=== PATIENT | male | born 1970 | race Caucasian/White ===

== ENCOUNTER → 2021-02-04 10:42 | Outpatient (CLI) | payer BC | END | disposition home or self-care (01) | LOC: D.HCCECHO 10:30 | PROVIDERS: ATTEND Internal Medicine Cardiovascular Disease | DX: I10 Essential (primary) hypertension (principal) ==

== ENCOUNTER → 2021-02-05 13:48 | Outpatient (CLI) | payer BC | END | disposition home or self-care (01) | LOC: D.HCCARDIO 13:48 | PROVIDERS: ATTEND Internal Medicine Cardiovascular Disease | DX: I20.9 Angina pectoris, unspecified (principal) ==

== ENCOUNTER 2021-02-11 07:28 | Day surgery (SDC) | payer BC ==
[~2021-02-11] VITALS: Ht 182.9 cm; Wt 123.6 kg
--- NOTE | ~2021-02-11 | HEMODYNAMI ---
PATIENT:MAYRA GRACE MEDICAL RECORD: [id number] : 74 LOCATION:[facility] ADMISSION DATE: 02/11/21 Generatedon:19:40 Patient name: MAYRA GRACE Patient #: [id number] : 1970 Date of study: 02/11/2021 Page: Of Hemodynamic Procedure Report Patient Data Patient Demographics Procedure consent was obtained First Name: MAYRA Gender: Male Last Name: SANJAY : 1970 Patient #: [id number] Age: 50 year(s) Race: Unknown SSN: [id number] Additional ID: [id number] Contact details [address]: [address] [place] [address] State: [place] City: [place] Zip code: [address] Admission Admission Data Admission Date: 02/11/2021 Admission Time: 7:28 Weight (lbs.): 270 Weight (kg.): 122.47 Procedure Procedure Types Cath Procedure Diagnostic Procedure [facility] w/Coronaries Sedation Charges Moderate Sedation 25-39 minutes Procedure Description Procedure Date Procedure Date: 02/11/2021 Procedure Start Time: 9:18 Procedure End Time: 9:38 Procedure Staff Name Function Bernard Mcqueen MD Performing Physician Lisa Walker RT Monitor Xu George RN Nurse Alexandru Lucia RN Nurse Nidhi Grande RT Scrub Michelle De La Torre RT Monitor Procedure Data Cath Procedure Fluoroscopy Diagnostic fluoroscopy Total fluoroscopy Time: 3.9 time: 3.9 min min Diagnostic fluoroscopy Total fluoroscopy dose: 814 dose: 814 mGy mGy Contrast Material Contrast Material Type Amount (ml) Isovue 300 61 Entry Location Entry Primary Successful Side Size Upsize Upsize Entry Closure [place] ccessful Closure Location (Fr) 1 (Fr) 2 (Fr) Remarks Device Remarks Radial Right 5 Fr Mechanical artery Compression Estimated blood loss: 5 ml Diagnostic catheters Device Type Used For End Catheter Placement DIAGNOSTIC Hensley 110cm 5 Multi-vessel Fr catheter ([id number]) Angiography DIAGNOSTIC JL 3.5 5Fr Left Coronary catheter ([id number]) Angiography DIAGNOSTIC Ger 110cm Left Coronary 5Fr catheter ([id number]) Angiography Procedure Complications No complications Procedure Medications Medication Administration Route Dosage Oxygen etCO2 Nasal cannula 2 l/min Lidocaine 2% added to field 20 Heparin Flush Bag added to field 2 bags (1000units/500ml NS) 0.9% NaCl I.V. 100 ml/hr Radial Cocktail added to field 1 syringe (Verapamil 2mg/Nitro 400mcg/Heparin 1500units) Fentanyl I.V. 50 mcg Versed I.V. 1 mg Versed I.V. 1 mg Fentanyl I.V. 50 mcg Fentanyl I.V. 50 mcg Versed I.V. 1 mg Fentanyl I.V. 50 mcg Versed I.V. 1 mg Versed I.V. 1 mg Fentanyl I.V. 75 mcg Versed I.V. 1 mg Fentanyl I.V. 25 mcg Hemodynamics Rest Heart Rate: 75 (bpm) Pressure Samples Time Site Value (mmHg) Purpose Heart Use Rate(bpm) 9:20 LV 158/0,20 Snapshot 78 Gradients Valve Time Site Site Mean SEP/DFP Peak To Heart Use 1 2 (mmHg) (sec/min) Peak Rate (mmHg) (bpm) Aortic 9:21 LV AO 76 Snapshots Pre Cath Intra NCS Post Cath Vital Signs Time Heart Resp SPO2 etCO2 NIBP (mmHg) Rhythm Pain Sedation Rate (ipm) (%) (mmHg) Status Level (bpm) 9:00:33 70 14 96 17.1 128/94(123) NSR 0 (11) 10(A) , No pain 9:04:55 67 17 90 29 140/86(113) NSR 0 (11) 10(A) , No pain 9:09:19 63 15 95 30.5 127/88(105) NSR 0 (11) 10(A) , No pain 9:13:41 74 18 94 24.5 137/88(107) NSR 0 (11) 10(A) , No pain 9:18:06 67 13 93 36.4 127/86(106) NSR 0 (11) 9(A) , No pain 9:22:24 74 13 92 23.8 126/72(99) NSR 0 (11) 9(A) , No pain 9:26:46 71 10 93 37.9 121/79(99) NSR 0 (11) 9(A) , No pain 9:31:00 75 13 93 30.5 133/97(107) NSR 0 (11) 10(A) , No pain 9:35:26 68 36 45.4 141/83(119) NSR 0 (11) 10(A) , No pain Medications Time Medication Route Dose Verified Delivered Reason Notes Effectiveness by by 8:59:20 Oxygen etCO2 2 l/min Bernard Alexandru used for Nasal Richar Lucia RN procedure cannula 8:59:34 Lidocaine 2% added 20ml Bernard Bernard for local to vial Richar Mcqueen MD anesthetic field 8:59:43 Heparin Flush added 2 bags Bernard Bernard used for Bag to Richar Mcqueen MD procedure (1000units/500ml field NS) 8:59:54 0.9% NaCl I.V. 100 Bernard Alexandru Per ml/hr Richar Lucia RN physician 9:00:11 Radial Cocktail added 1 Bernard Bernard for (Verapamil to syringe Richar Mcqueen MD vasodilation 2mg/Nitro field 400mcg/Heparin 1500units) 9:06:28 Fentanyl I.V. 50 mcg Bernard Alexandru for sedation Richar Lucia RN 9:06:41 Versed I.V. 1 mg Bernard Alexandru for sedation Richar Lucia RN 9:09:17 Versed I.V. 1 mg Bernard Alexandru for sedation Richar Lucia RN 9:09:23 Fentanyl I.V. 50 mcg Bernard Alexandru for sedation Richar Lucia RN 9:14:20 Fentanyl I.V. 50 mcg Bernard Alexandru for sedation Richar Lucia RN 9:14:23 Versed I.V. 1 mg Bernard Alexandru for sedation Richar Lucia RN 9:20:19 Fentanyl I.V. 50 mcg Bernard Alexandru for sedation Richar Lucia RN 9:20:23 Versed I.V. 1 mg Bernard Alexandru for sedation Richar Lucia RN 9:28:54 Versed I.V. 1 mg Bernard Alexandru for sedation Richar Lucia RN 9:30:32 Fentanyl I.V. 75 mcg Bernard Alexandru for sedation Richar Lucia RN 9:31:24 Versed I.V. 1 mg Bernard Aelxandru for sedation Richar Lucia RN 9:32:11 Fentanyl I.V. 25 mcg Bernard Horvath for sedation Richar Lucai RN Procedure Log Time Note 8:41:40 Patient Weight : 270 lbs 8:41:58 Diagnostic Cath Status : Elective 8:59:07 Vital chart was started 8:59:20 Oxygen 2 l/min etCO2 Nasal cannula was administered by Alexandru Lucia RN; used for procedure; Verbal order read back and verified. 8:59:34 Lidocaine 2% 20ml vial added to field was administered by Bernard Mcqueen MD; for local anesthetic; Verbal order read back and verified. 8:59:43 Heparin Flush Bag (1000units/500ml NS) 2 bags added to field was administered by Bernard Mcqueen MD; used for procedure; Verbal order read back and verified. 8:59:54 0.9% NaCl 100 ml/hr I.V. was administered by Alexandru Lucia RN; Per physician; Verbal order read back and verified. 9:00:11 Radial Cocktail (Verapamil 2mg/Nitro 400mcg/Heparin 1500units) 1 syringe added to field was administered by Bernard Mcqueen MD; for vasodilation; Verbal order read back and verified. 9:00:25 Procedure Status Elective Heart Cath (OP). 9:00:27 Bernard Mcqueen MD sent for patient. Start room use. 9:00:29 Time tracking: Regular hours (M-F 7:00 - 5:00) 9:00:34 Plan of Care:Hemodynamics will remain stable., Cardiac rhythm will remain stable., Comfort level will be maintained., Respiratory function will remain adequate., Patient/ family verbilizes understanding of procedure., Procedure tolerated without complication., Recovers from procedure without complications.. 9:00:40 Patient received from Pre/Post Procedure Room to CCL 1 Alert and oriented. Tansferred to table in Supine position. 9:00:44 Signed procedure consent form obtained from patient. 9:00:46 Warm blankets applied, and aspen hugger turned on for patient comfort. 9:00:46 Correct patient and procedure confirmed by team. 9:00:47 ECG and BP/O2 sat monitors applied to patient. 9:00:48 Baseline sample Acquired. 9:00:53 Rhythm: sinus rhythm 9:00:54 Full Disclosure recording started 9:01:10 H&P Date Dictated: 01/30/2021 Within 30 days and on chart., H&P Addendum completed by physician on day of procedure. (MUST COMPLETE FOR ALL OUTPATIENTS). 9:01:11 Pre-procedure instructions explained to patient. 9:01:13 Family in waiting room. 9:01:15 Patient NPO since Midnight. 9:01:21 Is the patient allergic to Iodine/contrast media? No. 9:01:23 Was the patient premedicated? Yes 9:01:45 Snore? Yes 9:01:52 IV patent on arrival in left forearm with 0.9% NaCl at [facility]. 9:02:05 Use device set Radial Dx or PCI 9:02:08 ACIST Syringe (86643) opened to sterile field. 9:02:08 Medline Cath Pack ([id number]) opened to sterile field. 9:02:10 Bag Decanter (2002S) opened to sterile field. 9:02:10 ACIST Hand Control (71196) opened to sterile field. 9:02:11 ACIST Manifold (37250) opened to sterile field. 9:02:12 MBrace Wrist Support ([id number]) opened to sterile field. 9:02:13 NEEDLE Cook 21G 4cm Radial ([id number]) opened to sterile field. 9:02:14 EMERALD Guide Wire (502-104) opened to sterile field. 9:02:15 SHEATH 6FR RAIN (0554216) opened to sterile field. 9:03:22 Patient diabetic? No. 9:03:29 Sleep apnea? No 9:04:07 Stress Test: yes; abnormal inferior/lateral 9:04:11 Alarms reviewed by R. N. 9:04:11 Sharps counted by scrub and verified by R.N. 9:04:14 Physician paged 9:04:16 Physician arrived 9:05:41 --------ALL STOP TIME OUT------ 9:05:42 Final Timeout: patient, procedure, and site verified with staff and physician. All members of the team are in agreement. 9:05:44 Right Radial & Right Groin site verified by team. 9:05:47 Fire Safety Assessment: A--An alcohol-based skin anteseptic being used preoperatively., C--Open oxygen or nitrous oxide is being used., D--An ESU, laser, or fiber-optic light is being used. 9:05:50 Physical assessment completed. ASA score P 2 - A patient with mild systemic disease as per Bernard Mcqueen MD. 9:06:28 Fentanyl 50 mcg I.V. was administered by Alexandru Lucia RN; for sedation; Verbal order read back and verified. 9:06:41 Versed 1 mg I.V. was administered by Alexandru Lucia RN; for sedation; Verbal order read back and verified. 9:07:58 2) 60-89 Mildly reduced kidney function, and other findings (as for stage 1) point to kidney disease. 9:08:43 Maximum allowable contrast dose (3.7 X eGFR X 0.75)235 ml. 9:08:47 Sedation plan: IV Moderate Sedation Medication:Versed, Fentanyl 9:09:17 Versed 1 mg I.V. was administered by Alexandru Lucia RN; for sedation; Verbal order read back and verified. 9:09:23 Fentanyl 50 mcg I.V. was administered by Alexandru Lucia RN; for sedation; Verbal order read back and verified. 9:14:20 Fentanyl 50 mcg I.V. was administered by Alexandru Lucia RN; for sedation; Verbal order read back and verified. 9:14:23 Versed 1 mg I.V. was administered by Alexandru Lucia RN; for sedation; Verbal order read back and verified. 9:16:09 Procedure started. 9:18:34 Local anesthetic to right radial artery with Lidocaine 2% by Bernard Mcqueen MD.INITIAL ACCESS ONLY 9:18:42 A 5 Fr sheath was inserted into the Right Radial artery 9:19:02 A DIAGNOSTIC Hensley 110cm 5 Fr catheter (967884) was advanced over the wire and used for Multi-vessel Angiography. 9:20:19 Fentanyl 50 mcg I.V. was administered by Alexandru Lucia RN; for sedation; Verbal order read back and verified. 9:20:23 Versed 1 mg I.V. was administered by Alexandru Lucia RN; for sedation; Verbal order read back and verified. 9:20:47 LV hemodynamics recorded. 9:20:48 LV gram done using CAMPOS 9:20:50 Injector settings: Ml/sec: 5, Volume: 15, 9:20:58 EF : 60 % 9:22:04 LCA angiography performed. 9:22:08 Injector settings: Ml/sec: 3, Volume: 6, 9:23:09 RCA angiography performed. 9:23:11 Injector settings: Ml/sec: 3, Volume: 6, 9:23:29 Catheter removed. 9:25:19 A DIAGNOSTIC JL 3.5 5Fr catheter ([id number]) was advanced over the wire and used for Left Coronary Angiography. 9:27:28 Catheter removed. unable to cannulate vessel. 9:28:31 A DIAGNOSTIC Ger 110cm 5Fr catheter (207374) was advanced over the wire and used for Left Coronary Angiography. 9:28:54 Versed 1 mg I.V. was administered by Alexandru Lucia RN; for sedation; Verbal order read back and verified. 9:30:32 Fentanyl 75 mcg I.V. was administered by Alexandru Lucia RN; for sedation; Verbal order read back and verified. 9:30:41 LCA angiography performed. 9:30:44 Injector settings: Ml/sec: 3, Volume: 6, 9:31:24 Versed 1 mg I.V. was administered by Alexandru Lucia RN; for sedation; Verbal order read back and verified. 9:32:11 Fentanyl 25 mcg I.V. was administered by Alexandru Lucia RN; for sedation; Verbal order read back and verified. 9:32:33 Catheter removed. 9:33:10 ZEPHYR LARGE TR BAND (023693) opened to sterile field. 9:33:48 Sheath removed intact; hemostasis achieved with Mechanical Compression to the Right Radial artery. 9:34:10 Procedure ended.(Physican Out) 9:35:27 Fluoroscopy time 03.90 minutes. 9:35:47 Fluoroscopy dose: 814 mGy 9:35:47 Flurop Dose total: 814 9:35:57 Dose Area Product 06268 mGy/cm. 9:36:04 Contrast amount:Isovue 300 61ml. 9:36:06 Maximum allowable dose exceeded? No. 9:36:07 Sharps counted by scrub and verified by R.N. 9:36:10 [place] band inflated with 9cc of air. 9:36:16 Insertion/operative site no bleeding no hematoma. 9:36:32 Post right radial artery:stable 9:36:35 Post Procedure Pulses reassessed and unchanged 9:36:43 Post procedure rhythm: unchanged. 9:36:45 Estimated blood loss: 5 ml 9:36:47 Post procedure instruction explained to patient.Patient verbalizes understanding. 9:36:48 Patient needs reinforcement of post procedure teaching. 9:37:45 Procedure type changed to Cath procedure, Diagnostic procedure, LHC, C w/Coronaries, Sedation Charges, Moderate Sedation 25-39 minutes 9:37:46 Procedure and supply charges have been captured, reviewed, submitted and are correct. 9:37:50 Procedure Complication : No complications 9:37:52 Vital chart was stopped 9:37:54 [facility] Findings: mild to moderate CAD (<70%) 9:37:56 Operative report dictated upon procedure completion. 9:37:56 See physician's report for complete and final results. 9:37:59 Report given to Pre/Post Procedure Room. 9:38:01 Patient transfered to Pre/Post Procedure Room with Stretcher. 9:38:03 Procedure ended. 9:38:03 Full Disclosure recording stopped 9:38:08 End room use (Document Last) 9:38:42 End room use (Document Last) 9:40:12 End room use (Document Last) Device Usage Item Name Manufacture Quantity Catalog Hospital Part Current Minima l Lot# / Number Charge Number Stock Stock Serial# Code ACIST Acist 1 09432 474843 307082 112201 20 Syringe Medical (21243) Systems Inc Medline Medline 1 [id number] 029924 52166 511564 5 Cath Pack ([id number]) Bag Microtek 1 063746 02255 360032 5 Decanter Medical Inc. () ACIST Hand Acist 1 89465 781365 634249 562762 5 Control Medical (36797) Systems Inc ACIST Acist 1 86247 325109 009793 118269 5 Manifold Medical (48195) Systems Inc MBrace Advanced 1 140-0250-00 649945 73862 359720 5 Wrist Vascular Support Dynamics ([id number]) NEEDLE Cook Cook Medical 1 U11038 689402 363968 006437 5 21G 4cm Radial (P87181) EMERALD Cardinal 1 502-455 592822 413048 355910 5 Guide Wire Health (792-694) SHEATH 6FR Cardinal 1 8848434 303800 6324987 257784 5 [facility] (5089915) DIAGNOSTIC Terumo 1 405013 233587 362938 979866 5 Hensley 110cm 5 Fr catheter (144001) DIAGNOSTIC Cardinal 1 [id number] 267060 324784 195726 5 JL 3.5 5Fr Health catheter (524678Y) DIAGNOSTIC Terumo 1 40-7133 401970 966769 808488 5 Ger 110cm 5Fr catheter (113305) ZEPHYR Cardinal 1 872262 267464 9472278 206751 5 LARGE TR Health BAND (719401) Signature Audit [place] Stage Time Signature Unsigned Intra-Procedure 02/11/2021 Lisa Walker 9:38:42 AM RT(R) Intra-Procedure 02/11/2021 Alexandru Lucia RN 9:40:12 AM Intra-Procedure 02/11/2021 Beranrd Mcqueen MD 9:40:32 AM [facility] [address] [place] [address]
[2021-02-11] MEDS ORDERED: LISINOPRIL20 MG PO (08:11)
[2021-02-11 08:22] VITALS: BP 153/92; Ht 182.9 cm; Wt 123.6 kg
[2021-02-11 08:50] LABS: BASOPHILS 0.8 % (0-2); HEMATOCRIT 46.1 % (42.0-54.0); HEMOGLOBIN 16.1 g/dL (13.5-17.5); IMMATURE GRANULOCYTES 0.3 % (0-5); LYMPHOCYTES 28.8 % (15-50); MCH 32.7 pg (26.0-34.0); MCHC 34.9 g/dL (31.0-37.0); MCV 93.7 fL (80.0-100.0); MEAN PLATELET VOLUME 9.6 fL (7.4-10.4); MONOCYTES 9.8 % (2-11); NEUTROPHIL ABS# 3.43 10x3/uL (1.78-5.38); NEUTROPHILS 58.3 % (40-80); PLATELET COUNT 191 10x3/uL (130-400); RBC 4.92 10x6/uL (4.20-6.10); RDW 13.9 % (11.5-14.5); WBC 5.9 10x3/uL (4.8-10.8)
[2021-02-11 09:06] LABS: ALT (SGPT) 56 U/L (10-68); CALC OSMOLALITY 281 mosm/kg (275-300); CARBON DIOXIDE 23.4 mmol/L (21.0-32.0); CHLORIDE - SERUM 106 mmol/L (98-107); CHOL - HDL RATIO 2.7 ratio (2.3-4.9); CHOLESTEROL, TOTAL 164 mg/dL (0-200); GLUCOSE 106 mg/dL (74-106); HDL CHOLESTEROL 62 mg/dL (32-96); LDL CHOLESTEROL 84 mg/dL (0-100); LDL-HDL RATIO 1.4 ratio (1.5-3.5); POTASSIUM - SERUM 3.7 mmol/L (3.5-5.1); SODIUM 140 mmol/L (136-145); TRIGLYCERIDE 91 mg/dL (30-200); UREA NITROGEN 21 mg/dL (7-18); eGFR NON AFRICAN AMERICAN 85 mL/min (90-120)
--- NOTE | 2021-02-11 09:45 | NUR ---
PT REC'D TO CATH RECOVERY ROOM 8 VIA [employer]. MONITORS ESTAB. AT BS. 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 ALARMS ON AND C/L IN REACH.
[2021-02-11] MEDS ORDERED: BAYER CHEWABLE81 MG PO (09:48)
--- NOTE | 2021-02-11 10:00 | NUR ---
PT RESTING QUIETLY, R WRIST SITE C/D/I, NO S/S BLEEDING OR HEMATOMA. R ARM/HAND WARM WITH PALP PULSES AND BRISK CAP REFILL. VSS. PT DENIES PAIN OR NEEDS. ALARMS ON AND C/L IN REACH.
--- NOTE | 2021-02-11 10:30 | NUR ---
R ARM/HAND WARM WITH PALP PULSES, R Z BAND SITE C/D/I, NO S/S BLEEDING OR HEMATOMA. VSS. ALARMS ON AND C/L IN REACH.
--- NOTE | 2021-02-11 10:45 | NUR ---
DR. GONZALEZ IN TO SEE PT, UPDATE GIVEN AND QUESTIONS ANSWERED. R WRIST SITE C/D/I, NO S/S BLEEDING OR HEMATOMA, PULSES PALP. VSS. PT SITTING UP IN BED, PUDDING PROVIDED. AT BS.
--- NOTE | 2021-02-11 11:00 | NUR ---
5 cc AIR REMOVED FROM Z BAND, NO S/S BLEEDING OR HEMATOMA. R ARM/HAND WARM WITH PALP PULSES. VSS. PT VERBALIZES S/S TO REPORT. ALARMS ON AND C/L IN REACH.
--- NOTE | 2021-02-11 11:15 | NUR ---
R WRIST SITE C/D/I, NO S/S BLEEDING OR HEMATOMA. PULSES PALP. MESSAGE SENT TO TAM AT DR ONEILL OFFICE PER PT REQUEST RE: SIDE EFFECTS OF LISINOPRIL.
--- NOTE | 2021-02-11 11:25 | NUR ---
ALL AIR REMOVED FROM Z BAND, NO S/S BLEEDING OR HEMATOMA. PULSES PALP. ALARMS ON AND C/L IN REACH.
--- NOTE | 2021-02-11 11:48 | NUR ---
RIGHT WRIST Z BAND REMOVED. DRESSING APPLIED. NO BLEEDING/HEMATOMA NOTED. RIGHT WRIST BRACE IN PLACE. PIV D/C'D WITH CATH TIP INTACT. TOLERATED WELL. PT INSTRUCTED TO GET UP AND DRESSED AT THIS TIME. AT BEDSIDE TO ASSIST. CALL LIGHT LEFT WITHIN REACH.
--- NOTE | 2021-02-11 11:54 | NUR ---
PT TO BR INDEPENDENTLY, THEN BACK TO ROOM. ALL DISCHARGE INSTRUCTIONS REVIEWED WITH PT AND HIS , INCLUDING RESTRICTIONS, MEDS AND F/U APPT. BOTH VERBALIZE UNDERSTANDING. R WRIST SITE C/D/I, NO S/S BLEEDING OR HEMATOMA, PULSES PALP AND ARM BOARD IN PLACE.
--- NOTE | 2021-02-11 12:00 | NUR ---
PT D/C'D VIA WC TO PRIVATE VEHICLE WITH ALL PAPERWORK AND BELONGINGS.
== END 2021-02-11 12:00 | disposition home or self-care (01) ==
LOC: D.CATH 07:28
PROVIDERS: ATTEND Internal Medicine Cardiovascular Disease
DX: I20.8 Other forms of angina pectoris (principal); R94.39 Abnormal result of other cardiovascular function study; R07.9 Chest pain, unspecified; I10 Essential (primary) hypertension